=== PATIENT | female | born 1945 | race Caucasian/White ===

== ENCOUNTER → 2017-01-17 | Outpatient (CLI) | payer MEDICARE, BC ==
--- NOTE | 2017-01-17 11:13 | US ---
EXAMINATION TYPE: US carotid duplex BILAT DATE OF EXAM: 01/17/2017 10:25 AM COMPARISON: NONE CLINICAL HISTORY: I65.23 OCCLUSION AND STENOSIS OF CAROTID. r/o occlusion or stenosis, baseline EXAM MEASUREMENTS: RIGHT: Peak Systolic Velocity (PSV) cm/sec ----- Right CCA: 55.3 ----- Right ICA: 101.8 ----- Right ECA: 122.2 ICA/CCA ratio: 1.8 RIGHT: End Diastole cm/sec ----- Right CCA: 12.5 ----- Right ICA: 26.7 ----- Right ECA: 9.1 LEFT: Peak Systolic Velocity (PSV) cm/sec ----- Left CCA: 79.1 ----- Left ICA: 107.0 ----- Left ECA: 92.1 ICA/CCA ratio: 1.4 LEFT: End Diastole cm/sec ----- Left CCA: 18.0 ----- Left ICA: 35.8 ----- Left ECA: 10.6 VERTEBRALS (direction of flow): Right Vertebral: Antegrade Left Vertebral: Antegrade No significant stenosis or elevated velocities seen. Plaque seen in bilateral bulbs. Bilateral wall thickening. Some intimal thickening is noted. Couple of small plaques are present. IMPRESSION: 1. Atheromatous plaquing without significant flow-limiting stenosis. Criteria for Assigning % of Stenosis / Diameter reduction (Estimation based on the indirect measurements of the internal carotid artery velocities (ICA PSV). 1. Normal (no stenosis)=ICA PSV < 125 cm/s: ratio < 2.0: ICA EDV<40 cm/s. 2. Less than 50% stenosis=ICA PSV < 125 cm/s: ratio < 2.0: ICA EDV<40 cm/s. 3. 50 to 69% stenosis=ICA PSV of 125 to 230 cm/s: ration 2.0 ? 4.0: ICA EDV 40-100 cm/s. 4. Greater than 70% stenosis to near occlusion= ICA PSV > 230 cm/s: ratio > 4.0: ICA EDV > 100 cm/s. 5. Near occlusion= ICA PSV velocities may be low or undetectable: variable ratio and ICA EDV. 6. Total occlusion=unable to detect flow.
--- NOTE | 2017-01-17 14:23 | BD ---
EXAMINATION TYPE: MG DEXA axial skeleton. DATE OF EXAM: 01/17/2017 11:00 AM COMPARISON: NONE CLINICAL HISTORY: screening for osteoporosis Height: 5'6 Weight: 317 FRAX RISK QUESTIONS: Alcohol (3 or more units per day): no Family History (Parent hip fracture): no Glucocorticoids (More than 3mos): no (Ex: prednisone, prednisolone, methylprednisolone, dexamethasone, and hydrocortisone). History of Fracture in Adulthood: no Secondary Osteoporosis: 1. Type 1 Diabetes: no 2. Hyperthyroidism: no 3. Menopause before 45: no 4. Malnutrition: no 5. Chronic liver disease: no Rheumatoid Arthritis: no Current Tobacco Use: no RISK FACTORS HISTORY OF: Family History of Osteoporosis: Active: Postmenopausal woman: MEDICATIONS: Thyroid Medications: Which medication: Synthroid How Lon Additional Medications: list scanned in Additional History: screening EXAM MEASUREMENTS: Bone mineral densitometry was performed using the [employer] System. Bone mineral density as measured about the Lumbar spine is: ----- L1-L4(G/cm2): 1.252 T Score Values are as follows: ----- L2: 0.3 ----- L3: 0.6 ----- L4: 0.8 ----- L1-L4: 0.6 Bone mineral density about the R hip (g/cm2): 1.000 Bone mineral density about the L hip (g/cm2): 1.025 T Score values are as follows: -----R Neck: -0.3 -----L Neck: -0.1 -----R Total: 1.2 -----L Total: 1.6 IMPRESSION: Normal (Values between +1 and -1 indicate normal bone mass). Consider repeating this study in 5 year s or sooner if there is some new clinical indication. NOTE: T-SCORE=SD OF THE YOUNG ADULT MEAN.
--- NOTE | 2017-01-18 15:42 | ECHOF ---
Referral Reason:i34.0 nONHEUMATIC MITRAL REGURGUTATION MEASUREMENTS -------- HEIGHT: 165.1 cm WEIGHT: 136.1 kg BP: RVIDd: 3.3 cm (< 3.3) IVSd: 1.4 cm (0.6 - 1.1) LVIDd: 4.7 cm (3.9 - 5.3) LVPWd: 1.5 cm (0.6 - 1.1) IVSs: 1.7 cm LVIDs: 3.5 cm LVPWs: 1.5 cm LA Diam: 3.8 cm (2.7 - 3.8) LAESV Index (A-L): 29.65 ml/m Ao Diam: 3.3 cm (2.0 - 3.7) AV Cusp: 1.6 cm (1.5 - 2.6) LA Diam: 4.6 cm (2.7 - 3.8) MV EXCURSION: 21.020 mm (> 18.000) MV EF SLOPE: 67 mm/s (70 - 150) EPSS: 0.3 cm MV E Ron: 0.53 m/s MV DecT: 321 ms MV A Ron: 0.88 m/s MV E/A Ratio: 0.60 RAP: 5.00 mmHg RVSP: 15.01 mmHg FINDINGS -------- Sinus rhythm. This was a technically adequate study. There is mild concentric left ventricular hypertrophy. Overall left ventricular systolic function is low-normal with, an EF between 50 - 55 %. The diastolic filling pattern is normal for the age of the patient 10.25. The right ventricle is normal in size. LA is midly dilated 29-33ml/m2. The right atrial size is normal. There is mild aortic valve sclerosis. There is no evidence of aortic regurgitation. Mild mitral annular calcification present. Mild mitral regurgitation is present. Mild tricuspid regurgitation present. There is no evidence of pulmonary hypertension. The right ventricular systolic pressure, as measured by Doppler, is 15.01mmHg. There is no pulmonic regurgitation present. The aortic root size is normal. There is no pericardial effusion. CONCLUSIONS -------- 1. There is mild concentric left ventricular hypertrophy. 2. The right ventricular systolic pressure, as measured by Doppler, is 15.01mmHg. 3. Overall left ventricular systolic function is low-normal with, an EF between 50 - 55 %. 4. The diastolic filling pattern is normal for the age of the patient 10.25 5. LA is midly dilated 29-33ml/m2. 6. There is mild aortic valve sclerosis. 7. Mild mitral annular calcification present. 8. Mild mitral regurgitation is present. 9. Mild tricuspid regurgitation present. 10. There is no evidence of pulmonary hypertension. TRIMMER OPERATOR: Kenna Deshpande RDCS
--- NOTE | 2017-01-22 08:24 | MM ---
Reason for exam: screening (asymptomatic). Last mammogram was performed 5 years and 6 months ago. History: Patient is postmenopausal. Family history of breast cancer in maternal aunt. Took estrogen for 5 years. Took progesterone for 5 years. Physical Findings: A clinical breast exam by your physician is recommended on an annual basis and results should be correlated with mammographic findings. MG 3D Screening Mammo W/Cad Bilateral CC and MLO view(s) were taken. Prior study comparison: July 12, 2011, bilateral digital screening mammo w/CAD. December 16, 2009, bilateral digital screening mammogram. There are scattered fibroglandular densities. No significant changes when compared with prior studies. ASSESSMENT: Negative, BI-RAD 1 RECOMMENDATION: Routine screening mammogram of both breasts in 1 year.
== END | disposition home or self-care (01) ==
LOC: RADUSWWP 09:38
PROVIDERS: ATTEND Internal Medicine
DX: Z12.31 Encounter for screening mammogram for malignant neoplasm of breast (principal); I08.1 Rheumatic disorders of both mitral and tricuspid valves; I10 Essential (primary) hypertension; E11.9 Type 2 diabetes mellitus without complications; E03.9 Hypothyroidism, unspecified; I65.29 Occlusion and stenosis of unspecified carotid artery; Z13.820 Encounter for screening for osteoporosis; Z79.82 Long term (current) use of aspirin; Z79.84 Long term (current) use of oral hypoglycemic drugs; Z79.1 Long term (current) use of non-steroidal anti-inflammatories (NSAID); Z79.899 Other long term (current) drug therapy
CPT/HCPCS: 93306; 77080; 77063; 93880; G0202

== ENCOUNTER → 2017-03-21 | Outpatient (CLI) | payer MEDICARE, BC ==
[2017-03-21 11:14] LABS: Appearance,Urine Clear (Clear); Bilirubin,Urine Negative (Negative); Glucose,Urine (UA) Negative (Negative); Ketones,Urine Negative (Negative); Leukocyte Esterase,Urine Small (Negative); Mucus,Urine Rare /hpf; Nitrite,Urine Negative (Negative); PH, Urine 5.5 (5.0-8.0); Particle Count 4046; Protein,Urine Negative (Negative); RBC,Urine 1 /hpf (0-5); Specific Gravity,Urine 1.021 (1.001-1.035); Squamous Epithelial Cell,Urine 2 /hpf (0-4); UA Billing (MACRO vs. MICRO) MICRO; Urobilinogen,Urine <2.0 mg/dL (<2.0); WBC,Urine 3 /hpf (0-5)
[2017-03-21 11:16] LABS: Basophils # (A) 0.1 k/uL (0-0.2); Basophils % (A) 1 %; CH 30.3; CHCM 33.7; Eosinophils # (A) 0.2 k/uL (0-0.7); Eosinophils % (A) 4 %; HCT 45.8 % (34.0-46.0); HDW 2.68; HGB 15.4 gm/dL (11.4-16.0); Luc # (Auto) 0.12; Luc % (Auto) 2; Lymphocytes # (A) 1.8 k/uL (1.0-4.8); Lymphocytes % (A) 29 %; MCH 30.4 pg (25.0-35.0); MCHC 33.7 g/dL (31.0-37.0); MCV 90.2 fL (80.0-100.0); Monocytes # (A) 0.3 k/uL (0-1.0); Monocytes % (A) 5 %; Neutrophils # (A) 3.6 k/uL (1.3-7.7); Neutrophils % (A) 59 %; RBC 5.07 m/uL (3.80-5.40); RDW 12.9 % (11.5-15.5); WBC 6.1 k/uL (3.8-10.6); WBC (Perox) 6.13
[2017-03-21 11:25] LABS: ALT 34 U/L (9-52); AST 28 U/L (14-36); Alkaline Phosphatase 85 U/L (38-126); Anion Gap 8 mmol/L; Blood Urea Nitrogen 25 mg/dL (7-17); Calcium 9.7 mg/dL (8.4-10.2); Carbon Dioxide 31 mmol/L (22-30); Chloride 102 mmol/L (98-107); Cholesterol 175 mg/dL (<200); Creatine Kinase 39 U/L (30-135); Glucose 162 mg/dL (74-99); HDL Cholesterol 59 mg/dL (40-60); Non-African American GFR(MDRD) >60 (>60 ml/min/1.73 sqM); Potassium 4.4 mmol/L (3.5-5.1); Sodium 141 mmol/L (137-145); Total Bilirubin 0.8 mg/dL (0.2-1.3); Total Protein 6.9 g/dL (6.3-8.2); Triglycerides 159 mg/dL (<150)
== END | disposition home or self-care (01) ==
LOC: LABWHC1 10:41
PROVIDERS: ATTEND Internal Medicine
DX: E78.00 Pure hypercholesterolemia, unspecified (principal); E55.9 Vitamin D deficiency, unspecified; E11.9 Type 2 diabetes mellitus without complications; E03.8 Other specified hypothyroidism; I10 Essential (primary) hypertension
CPT/HCPCS: 36415; 80053; 80061; 81001; 82306; 82550; 83036; 84439; 84443; 84550; 85025

== ENCOUNTER → 2018-01-30 | Outpatient (CLI) | payer MEDICARE, BC ==
--- NOTE | 2018-02-03 12:48 | MM ---
Reason for exam: screening (asymptomatic). Last mammogram was performed 1 year ago. History: Patient is postmenopausal. Family history of breast cancer in maternal aunt. Took estrogen for 5 years. Took progesterone for 5 years. Physical Findings: A clinical breast exam by your physician is recommended on an annual basis and results should be correlated with mammographic findings. MG 3D Screening Mammo W/Cad Bilateral CC, MLO, and XCCL view(s) were taken. Prior study comparison: January 17, 2017, bilateral MG 3d screening mammo w/cad. July 12, 2011, bilateral digital screening mammo w/CAD. The breast tissue is heterogeneously dense. This may lower the sensitivity of mammography. No significant changes when compared with prior studies. ASSESSMENT: Benign, BI-RAD 2 RECOMMENDATION: Routine screening mammogram of both breasts in 1 year.
== END | disposition home or self-care (01) ==
LOC: RADMAMWWP 06:58
PROVIDERS: ATTEND Obstetrics & Gynecology
DX: Z12.31 Encounter for screening mammogram for malignant neoplasm of breast (principal)
CPT/HCPCS: 77063; 77067

== ENCOUNTER → 2019-09-17 | Outpatient (CLI) | payer MEDICARE, BC ==
--- NOTE | 2019-09-18 11:00 | ECHOF ---
Referral Reason:I22.[address] elevation (STEMI) myocardial i MEASUREMENTS -------- HEIGHT: 170.2 cm WEIGHT: 136.1 kg BP: RVIDd: 2.3 cm (< 3.3) IVSd: 1.3 cm (0.6 - 1.1) LVIDd: 3.9 cm (3.9 - 5.3) LVPWd: 1.4 cm (0.6 - 1.1) IVSs: 1.8 cm LVIDs: 2.7 cm LVPWs: 1.9 cm LAESV Index (A-L): 19.48 ml/m Ao Diam: 2.8 cm (2.0 - 3.7) AV Cusp: 1.8 cm (1.5 - 2.6) LA Diam: 3.8 cm (2.7 - 3.8) MV E Ron: 0.84 m/s MV DecT: 153 ms MV A Ron: 1.05 m/s MV E/A Ratio: 0.80 RAP: 5.00 mmHg RVSP: 12.66 mmHg FINDINGS -------- Sinus rhythm. This was a technically adequate study. The left ventricular size is normal. There is mild concentric left ventricular hypertrophy. Overa ll left ventricular systolic function is normal with, an EF between 55 - 60 %. The diastolic fillin g pattern is normal for the age of the patient 13.84. The right ventricle is normal in size. The left atrial size is normal. Normal LA size by volume 22+/-6 ml/m2. The right atrial size is normal. The aortic valve is trileaflet and appears structurally normal. The mitral valve is normal. The mitral valve leaflets are mildly thickened. There is trace mitral regurgitation. The tricuspid valve appears structurally normal. Trace tricuspid regurgitation present. Right selvin tricular systolic pressure is normal at < 35 mmHg. There is no pulmonic regurgitation present. The aortic root size is normal. Normal inferior vena cava with normal inspiratory collapse consistent with estimated right atrial pre ssure of 5 mmHg. There is no pericardial effusion. CONCLUSIONS -------- 1. Sinus rhythm. 2. This was a technically adequate study. 3. The left ventricular size is normal. 4. There is mild concentric left ventricular hypertrophy. 5. Overall left ventricular systolic function is normal with, an EF between 55 - 60 %. 6. The diastolic filling pattern is normal for the age of the patient 13.84 7. The right ventricle is normal in size. 8. The left atrial size is normal. 9. Normal LA size by volume 22+/-6 ml/m2. 10. The right atrial size is normal. 11. The aortic valve is trileaflet and appears structurally normal. 12. The mitral valve is normal. 13. The mitral valve leaflets are mildly thickened. 14. There is trace mitral regurgitation. 15. The tricuspid valve appears structurally normal. 16. Trace tricuspid regurgitation present. 17. Right ventricular systolic pressure is normal at < 35 mmHg. 18. There is no pulmonic regurgitation present. 19. The aortic root size is normal. 20. Normal inferior vena cava with normal inspiratory collapse consistent with estimated right atrial pressure of 5 mmHg. 21. There is no pericardial effusion. CROP AND SOIL SCIENTIST: Shannen London RDCS
== END | disposition home or self-care (01) ==
LOC: RADECHMAIN 13:11
PROVIDERS: ATTEND Internal Medicine
DX: I51.7 Cardiomegaly (principal)
CPT/HCPCS: 93306

== ENCOUNTER → 2020-01-26 | Outpatient (CLI) | payer MEDICARE, BC ==
[2020-01-26 10:55] LABS: Basophils # (A) 0.1 k/uL (0-0.2); Basophils % (A) 1 %; Eosinophils # (A) 0.3 k/uL (0-0.7); Eosinophils % (A) 4 %; HCT 44.2 % (34.0-46.0); HGB 14.6 gm/dL (11.4-16.0); Lymphocytes # (A) 2.2 k/uL (1.0-4.8); Lymphocytes % (A) 30 %; MCH 30.9 pg (25.0-35.0); MCHC 32.9 g/dL (31.0-37.0); MCV 93.9 fL (80.0-100.0); Mean Platelet Volume 7.5; Monocytes # (A) 0.4 k/uL (0-1.0); Monocytes % (A) 5 %; Neutrophils # (A) 4.3 k/uL (1.3-7.7); Neutrophils % (A) 58 %; Platelet Count 211 k/uL (150-450); RBC 4.71 m/uL (3.80-5.40); RDW 12.6 % (11.5-15.5); WBC 7.3 k/uL (3.8-10.6)
[2020-01-26 17:45] LABS: African American GFR (CKD) 73.5 (60.0-200.0); Albumin/Globulin Ratio 1.67 (1.60-3.17); Anion Gap 9.2 mmol/L (4.00-12.00); BUN/Creat Ratio 27.78 Ratio (12.00-20.00); Calcium 9.6 mg/dL (8.7-10.3); Carbon Dioxide 26.8 mmol/L (21.6-31.8); Chol/HDL Ratio 2.8; Globulin 2.4 g/dL (1.6-3.3); LDL Cholesterol,Calculated 74.2 mg/dL (0.0-131.0); Non-African American GFR(CKD) 63.4 (60.0-200.0); Potassium 4.6 mmol/L (3.5-5.5); Total Bilirubin 0.7 mg/dL (0.3-1.2); Total Protein 6.4 g/dL (6.2-8.2); VLDL Calculation 33.8 mg/dL (5.00-40.00)
[2020-01-26 18:12] LABS: Hemoglobin A1C 6.5 % (4.0-6.0)
== END | disposition home or self-care (01) ==
LOC: LABWHC1 09:47
PROVIDERS: ATTEND Internal Medicine
DX: I10 Essential (primary) hypertension (principal); E78.2 Mixed hyperlipidemia; E11.69 Type 2 diabetes mellitus with other specified complication
CPT/HCPCS: 36415; 80053; 80061; 83036; 84443; 85025

== ENCOUNTER → 2022-07-11 | Outpatient (CLI) | payer MEDICARE, BC ==
[2022-07-11 09:58] VITALS: BP 127/75; PULSE 86; RESP 18; TEMP 98.8
--- NOTE | 2022-07-11 10:53 | P.HPOB ---
History of Present Illness H&P Date: 07/11/22 Chief Complaint: The patient is here for her routine gynecologic exam. This is a 76-year-old with an LMP of approximately 2006. The patient is here to establish with this office. It has been more than 4 years since her last pelvic exam. She is without gynecologic complaints and denies any postmenopausal bleeding. Review of Systems The patient has lost 75 pounds over the last year. She states this has been intentional weight loss and she has done that by eating smaller portions and eating healthy. She denies respiratory, cardiac, or G.I. problems. Past Medical History Past Medical History: Diabetes Mellitus, Hyperlipidemia, Hypertension, Osteoarthritis (OA), Thyroid Disorder Additional Past Medical History / Comment(s): GOITER and hypothyroidism controlled with thyroid medication. Type 2 diabetes diet controlled. Glaucoma. 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 History of Any Multi-Drug Resistant Organisms: None Reported Past Surgical History: Bariatric Surgery, Cholecystectomy, Tubal Ligation Additional Past Surgical History / Comment(s): LAP BAND 2000, HEMROID SURGERY 1 972. Nasal surgery 2. Past Psychological History: No Psychological Hx Reported (She denies current depression.) Smoking Status: Never smoker Past Alcohol Use History: Rare (3 per year) Past Drug Use History: None Reported Additional History: She has been since 1966 and is not sexually active. 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 - Past Family History Mother Family Medical History: Diabetes Mellitus Father Family Medical History: Myocardial Infarction ([place]) Additional Family Medical History / Comment(s): from an [place] at age 52. Medications and Allergies Home Medications Medication Instructions Recorded Confirmed Type Aspirin 81 mg PO DAILY 06/19/14 07/11/22 History Levothyroxine Sodium [Synthroid] 125 mcg PO DAILY 06/19/14 07/11/22 History Losartan/Hydrochlorothiazide 1 tab PO DAILY 06/19/14 07/11/22 History [Losartan-Hctz 100-25 mg Tab] Pravastatin Sodium [Pravachol] 40 mg PO DAILY 06/19/14 07/11/22 History Timolol [Betimol 0.5% Ophth Soln] 1 drop BOTH EYES BID 06/19/14 07/11/22 History Cholecalciferol [Vitamin D3 (25 50 mcg PO DAILY 07/11/22 07/11/22 History Mcg = 1000 Iu)] Multivitamin [Multivitamins Adult 1 cap PO DAILY 07/11/22 07/11/22 History Gummies] amLODIPine BESYLATE 5 mg PO DAILY 07/11/22 07/11/22 History Allergies Allergy/AdvReac Type Severity Reaction Status Date / Time adhesive tape Allergy Rash/Hives Unverified 07/11/22 09:49 Exam Vital Signs Temp Pulse Resp BP Pulse Ox 07/11/22 09:54 98.8 F 86 18 127/75 97 Intake and Output 07/10/22 07/11/22 07/11/22 22:59 06:59 14:59 Other: Weight 108.409 kg Height 5 feet 7 inches, weight 239 pounds, BMI 37.4. This is a well-developed well-nourished white female who is alert and oriented times 3 in no acute distress. HEENT: Within normal limits. NECK: Supple without mass or thyromegaly. CHEST AND LUNGS: Clear to auscultation. HEART: Regular rate and rhythm. BREASTS: Are without mass or discharge. AXILLARY EXAM: Negative for adenopathy. BACK: Negative for CVA tenderness. ABDOMEN: Soft, nontender, without palpable masses. PELVIC EXAM: Normal external genitalia with mild atrophy. Cervix and vagina appear normal is mild atrophy. There is no unusual discharge. There is no evidence of prolapse. The uterus is midposition, nongravid size and nontender. There are no palpable adnexal masses or tenderness. RECTAL EXAM: rectovaginal exam is negative for mass or tenderness and is negative for occult blood. EXTREMITIES: Nontender. IMPRESSION: 1. 76-year-old menopausal female with normal gynecologic exam PLAN: 1. Pap smear cotest was performed. Data base is incomplete regarding previous cervical screening. If this Pap smear cotest is negative, we will repeated an approximate 4-5 years and if they are both negative, we will discontinue Pap s josemanuel. 2. Self breast awareness was discussed with the patient. We have also discussed symptoms associated with inflammatory breast cancer. 3. Screening mammogram is scheduled for 08/02/2022. The order slip was given to the patient for this. 4. Osteoporosis prevention was discussed. I have stressed the importance of adequate calcium, vitamin D and regular exercise. Recommended amounts of ca lcium and vitamin D were also discussed. Bone density testing is scheduled for 08/02/2022 and the order slip was given to the patient for this. She had a normal bone density test in 2017. 5. Colorectal cancer screening was discussed. She has been doing Cologuard testing through her PCP and states she will be doing this in the near future. 6. She has completed her Covid vaccination series and has received 3 boosters. 7. She was advised to return in one year for her annual well woman exam.
== END | disposition home or self-care (01) ==
LOC: WWCWWP 09:41
PROVIDERS: ATTEND Obstetrics & Gynecology
DX: Z53.9 Procedure and treatment not carried out, unspecified reason (principal)

== ENCOUNTER → 2022-08-02 | Outpatient (CLI) | payer MEDICARE, BC ==
--- NOTE | 2022-08-02 17:48 | BD ---
EXAMINATION TYPE: Axial Bone Density DATE OF EXAM: 08/02/2022 CLINICAL HISTORY: 76 year old Female. ICD-10 CODE: M85.851 DISRD OF BONE DENSITY AND STRUCTURE Height: 66 Weight: 242.7 FRAX RISK QUESTIONS: Alcohol (3 or more units per day): no Family History (Parent hip fracture): no Glucocorticoids (More than 3mos): no (Ex: prednisone, prednisolone, methylprednisolone, dexamethasone, and hydrocortisone). History of Fracture in Adulthood: no Secondary Osteoporosis: 1. Type 1 Diabetes: no 2. Hyperthyroidism: no 3. Menopause before 45: no 4. Malnutrition: no 5. Chronic liver disease: no Rheumatoid Arthritis: no Current Tobacco Use: no RISK FACTORS HISTORY OF: Surgery to Spine/Hip(right/left)/Wrist (right/left): no Family History of Osteoporosis: yes Active: no Diet low in dairy products/other sources of calcium: no Postmenopausal woman: yes Lost more than 2 inches in height since high school: no MEDICATIONS: Thyroid Medications:levothyroxine Additional History: EXAM MEASUREMENTS: Bone mineral densitometry was performed using the [employer] System. Bone mineral density as measured about the Lumbar spine is: ----- L1-L4(G/cm2): 1.480 T Score Values are as follows: ----- L1: 1.3 ----- L2: 3.9 ----- L3: 3.9 ----- L4: 1.3 ----- L1-L4: 2.5 Bone mineral density has: increased 21.3 % since study of: 01.17.2017 Bone mineral density about the R hip (g/cm2): 1.036 Bone mineral density about the L hip (g/cm2): 1.015 T Score values are as follows: -----R Neck: 0.0 -----L Neck: -0.2 -----R Total: 0.9 -----L Total: 0.9 Bone mineral density has: decreased -5.1 % since study of: 01.17.2017 FRAX%s: The graph provided illustrates a 7.1% chance for a major osteoporotic fx and a 0.7% chance fo r the hips probability for fx in 10 years time. IMPRESSION: Normal (Values between +1 and -1 indicate normal bone mass). Consider repeating this study in 5 year s or sooner if there is some new clinical indication. NOTE: T-SCORE=SD OF THE YOUNG ADULT MEAN.
--- NOTE | 2022-08-03 07:57 | MM ---
Reason for Exam: Screening (asymptomatic). Last mammogram was performed 4 year(s) and 6 month(s) ago. Patient History: Menarche at age 17. First Full-Term at age 21. Postmenopausal. Patient used Estrogen for 5 years. Patient used Progesterone for 5 years. Maternal aunt had breast cancer. Risk Values: Karolina 5 year model risk: 1.4%. NCI Lifetime model risk: 3.1%. Prior Study Comparison: 07/12/2011 Bilateral Screening Mammogram, [facility]. 01/17/2017 Bilateral Screening Mammogram, [facility]. 01/30/2018 Bilateral Screening Mammogram, [facility]. Tissue Density: The breast tissue is heterogeneously dense. This may lower the sensitivity of mammography. Findings: Analyzed By CAD. There are benign-appearing rounded, dystrophic, and vascular calcifications bilaterally redemonstrated. There is no suspicious new group of microcalcifications or new suspicious mass in either breast. Overall Assessment: Benign, BI-RAD 2 Management: Screening Mammogram of both breasts in 1 year. A clinical breast exam by your physician is recommended on an annual basis and results should be correlated with mammographic findings. Electronically signed and approved by: Patrice Dangelo M.D.
== END | disposition home or self-care (01) ==
LOC: RADMAMWWP 07:51
PROVIDERS: ATTEND Internal Medicine
DX: Z12.31 Encounter for screening mammogram for malignant neoplasm of breast (principal); M85.851 Other specified disorders of bone density and structure, right thigh; Z78.0 Asymptomatic menopausal state; Z80.3 Family history of malignant neoplasm of breast
CPT/HCPCS: 77063; 77067; 77080

== ENCOUNTER → 2023-01-14 | Outpatient (CLI) | payer MEDICARE, BC ==
--- NOTE | 2023-01-14 08:19 | CT ---
EXAMINATION TYPE: CT chest wo con DATE OF EXAM: 01/14/2023 COMPARISON: None HISTORY: Pulmonary nodule. Patient not having any complaints at time of scan. CT DLP: 494.[address] of the chest was performed with lung and mediastinal window settings submitted. The la ck of contrast limits evaluation of the vascular, mediastinal and parenchymal structures including th e upper abdomen. LUNGS: 3 mm right upper lobe pulmonary nodule image 14 sequence 4. No additional pulmonary nodules se en. No evidence for infiltrate. No volume loss or pleural effusion. MEDIASTINUM/ARLINE: Thoracic aorta is of normal caliber with limited evaluation given lack of contrast . The heart is not enlarged. No evidence for mediastinal mass. No lymph nodes greater than 1cm. UPPER ABDOMEN: No significant abnormality is seen. OTHER: The gallbladder is surgically absent. Gastric banding procedure noted. IMPRESSION: 1. 3 mm right upper lobe pulmonary nodule. Stability over a two-year time frame should be documented radiographically.
== END | disposition home or self-care (01) ==
LOC: RADCTMAIN 06:40
PROVIDERS: ATTEND Internal Medicine
DX: R91.1 Solitary pulmonary nodule (principal)
CPT/HCPCS: 71250

== ENCOUNTER → 2023-08-09 | Outpatient (CLI) | payer MEDICARE, BC ==
--- NOTE | 2023-08-13 21:20 | MM ---
Reason for Exam: Screening (asymptomatic). Last screening mammogram was performed 12 month(s) ago. Patient History: Menarche at age 17. First Full-Term at age 21. Postmenopausal. Patient used Estrogen for 5 years. Patient used Progesterone for 5 years. Maternal aunt had breast cancer. Risk Values: Karolina 5 year model risk: 1.4%. NCI Lifetime model risk: 2.9%. Prior Study Comparison: 01/17/2017 Bilateral Screening Mammogram, [facility]. 01/30/2018 Bilateral Screening Mammogram, [facility]. 08/02/2022 Bilateral MG 3D screening mammo w/cad, [facility]. Tissue Density: There are scattered fibroglandular densities. Findings: Analyzed By CAD. Unchanged bilateral areas of asymmetric densities. Unchanged grouped calcifications central outer aspect of the left breast. Scar marker also present on the left from prior mole removal per technologist history. There is no suspicious group of microcalcifications or new suspicious mass in either breast. Overall Assessment: Benign, BI-RAD 2 Management: Screening Mammogram of both breasts in 1 year. . Patient should continue monthly self-breast exams. A clinical breast exam by your physician is recommended on an annual basis. This exam should not preclude additional follow-up of suspicious palpable abnormalities. Note on Karolina scores and lifetime risk: 1. A Karloina score greater than 3% is considered moderate risk. If this is the case, consider specialist referral to assess eligibility for a risk reducing agent. 2. If overall lifetime risk for the development of breast cancer is 20% or higher, the patient may qualify for future screening with alternating mammogram and breast MRI. Electronically signed and approved by: Elvin Hughes M.D. Radiologist
== END | disposition home or self-care (01) ==
LOC: RADMAMWWP 16:07
PROVIDERS: ATTEND Internal Medicine
DX: Z12.31 Encounter for screening mammogram for malignant neoplasm of breast (principal); Z80.3 Family history of malignant neoplasm of breast; Z78.0 Asymptomatic menopausal state
CPT/HCPCS: 77063; 77067

== ENCOUNTER → 2024-08-11 | Outpatient (CLI) | payer BC, MEDICARE ==
--- NOTE | 2024-08-11 11:01 | US ---
EXAMINATION TYPE: US carotid duplex BILAT DATE OF EXAM: 08/11/2024 COMPARISON: US CLINICAL INDICATION: Female, 78 years old with history of I65.23 Stenosis; Stenosis Additional History: .... TECHNIQUE: Grayscale, color Doppler and spectral Doppler evaluation of the bilateral carotid systems and vertebral arteries. Indirect Doppler criteria was utilized. FINDINGS: EXAM MEASUREMENTS: RIGHT: Peak Systolic Velocity (PSV) cm/sec ----- Right CCA: 95.2 ----- Right ICA: 103.0 ----- Right ECA: 172.7 ICA/CCA ratio: 1.1 RIGHT: End Diastole cm/sec ----- Right CCA: 14.9 ----- Right ICA: 22.8 ----- Right ECA: 11.0 LEFT: Peak Systolic Velocity (PSV) cm/sec ----- Left CCA: 90.8 ----- Left ICA: 135.0 ----- Left ECA: 128.6 ICA/CCA ratio: 1.5 LEFT: End Diastole cm/sec ----- Left CCA: 14.9 ----- Left ICA: 25.2 ----- Left ECA: 0.0 VERTEBRALS (direction of flow): Right Vertebral: Antegrade Left Vertebral: Antegrade Rhythm: Normal SLATE MIXER NOTES: Focal areas of atherosclerotic plaque bilaterally. Elevated velocities right ECA , otherwise no significant stenosis visualized Color Doppler imaging shows patency with blood flow throughout the carotid artery. Spectral waveforms are within normal limits. IMPRESSION: Right: No hemodynamically significant stenosis. Left: No hemodynamically significant stenosis. Criteria for Assigning % of Stenosis / Diameter reduction (Estimation based on the indirect measurements of the internal carotid artery velocities (ICA PSV). 1. Normal (no stenosis)=ICA PSV < 125 cm/s: ratio < 2.0: ICA EDV<40 cm/s. 2. Less than 50% stenosis=ICA PSV < 125 cm/s: ratio < 2.0: ICA EDV<40 cm/s. 3. 50 to 69% stenosis=ICA PSV of 125 to 230 cm/s: ration 2.0 ? 4.0: ICA EDV 40-100 cm/s. 4. Greater than 70% stenosis to near occlusion= ICA PSV > 230 cm/s: ratio > 4.0: ICA EDV > 100 cm/s. 5. Near occlusion= ICA PSV velocities may be low or undetectable: variable ratio and ICA EDV. 6. Total occlusion=unable to detect flow. [facility], , 08/11/2024 10:59 AM
--- NOTE | 2024-08-11 11:58 | CT ---
EXAMINATION TYPE: CT chest wo con CT DLP: 781 mGycm, Automated exposure control for dose reduction was used. DATE OF EXAM: 08/11/2024 11:46 AM COMPARISON: CT chest 01/14/2023 CLINICAL INDICATION:Female, 78 years old with history of R91.1; PHH, F/u for right upper lobe pulmona ry nodule. TECHNIQUE: Multiple axial images were obtained through the chest without IV contrast. Lack of IV or o ral contrast limits evaluation of solid and hollow organ viscera. . Coronal and sagittal reformats re viewed. FINDINGS: LUNGS/ PLEURA: No pleural effusion, pneumothorax, focal consolidation. Minimal centrilobular emphysem atous changes. Posterior upper lobe stable 4 mm pulmonary nodule (series 4, image 11). Stable medial left lower lobe 5 mm pulmonary nodule (series 4, image 41). Couple of scattered punctate calcified g ranulomas. No new or enlarging pulmonary nodules. AIRWAY: Patent and unremarkable.. HEART: Size within normal limits.No pericardial effusion. Mild coronary arterial calcifications. MEDIASTINUM: No gross evidence of adenopathy. VASCULATURE: No aortic aneurysm. Atherosclerotic calcification of the aorta and its branches. MUSCULOSKELETAL: Mild disc degeneration changes are present throughout the thoracolumbar spine. No ac rosie osseous abnormality. SOFT TISSUES/LYMPH NODES: Unremarkable. LOWER NECK: No significant findings. 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 Gallbladder is surgically absent. 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 IMPRESSION: Couple of stable pulmonary nodules dating back to 2022 exam. No new or enlarging pulmonary nodules. [facility], , 08/11/2024 11:56 AM
--- NOTE | 2024-08-12 12:06 | MM ---
Reason for Exam: Screening (asymptomatic). Last screening mammogram was performed 12 month(s) ago. Patient History: Menarche at age 17. First Full-Term at age 21. Postmenopausal. Patient used Estrogen for 5 years. Patient used Progesterone for 5 years. Maternal aunt had breast cancer. Risk Values: Karolina 5 year model risk: 1.4%. NCI Lifetime model risk: 2.7%. Prior Study Comparison: 01/17/2017 Bilateral Screening Mammogram, [facility]. 01/30/2018 Bilateral Screening Mammogram, [facility]. 08/02/2022 Bilateral MG 3D screening mammo w/cad, [facility]. 08/09/2023 Bilateral MG 3D screening mammo w/cad, [facility]. Tissue Density: There are scattered areas of fibroglandular density. Findings: Analyzed By CAD. Right breast: There is no suspicious group of microcalcifications or new suspicious mass. Benign-appearing calcifications right breast. Left breast: There is no suspicious group of microcalcifications or new suspicious mass. Benign-appearing calcifications left breast. Overall Assessment: Benign, BI-RAD 2 Management: Screening Mammogram of both breasts in [address] [facility] will attempt to contact patient to return for supplemental views and ultrasound if indicated. Patient should continue monthly self-breast exams. A clinical breast exam by your physician is recommended on an annual basis. This exam should not preclude additional follow-up of suspicious palpable abnormalities. Note on Karolina scores and lifetime risk: 1. A Karolina score greater than 3% is considered moderate risk. If this is the case, consider specialist referral to assess eligibility for a risk reducing agent. 2. If overall lifetime risk for the development of breast cancer is 20% or higher, the patient may qualify for future screening with alternating mammogram and breast MRI. [facility], , 08/12/2024 12:04 PM. Electronically signed and approved by: Willis De La Paz DO
== END | disposition home or self-care (01) ==
LOC: RADUSWWP 09:58
PROVIDERS: ATTEND Internal Medicine
DX: Z12.31 Encounter for screening mammogram for malignant neoplasm of breast (principal); R91.1 Solitary pulmonary nodule; I65.23 Occlusion and stenosis of bilateral carotid arteries; Z78.0 Asymptomatic menopausal state; Z80.3 Family history of malignant neoplasm of breast; R92.323 Mammographic fibroglandular density, bilateral breasts
CPT/HCPCS: 71250; 77063; 77067; 93880

== ENCOUNTER → 2024-08-27 | Outpatient (CLI) | payer MEDICARE, BC ==
--- NOTE | 2024-08-28 07:41 | CA ---
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 67 - 155 / 56 - 104 cm??? LV Systolic Volume MOD BP 15.0 cm??? 22 - 58 / 19 - 49 cm??? LV Ejection Fraction MOD BP 68.2 % >= 55 % LV Cardiac Index MOD BP 710.3 cm???/min???m??? LV Diastolic Volume MOD 4C 51.6 cm??? LV Systolic Volume MOD 4C 12.5 cm??? LV Ejection Fraction MOD 4C 75.8 % LV Cardiac Index MOD 4C 861.1 cm???/min???m??? LV Diastolic Length 4C 6.6 cm LV Systolic Length 4C 5.3 cm LV Diastolic Volume MOD 2C 41.5 cm??? LV Systolic Volume MOD 2C 17.8 cm??? LV Ejection Fraction MOD 2C 57.0 % LV Cardiac Index MOD 2C 521.7 cm???/min???m??? LV Diastolic Length 2C 6.3 cm LV Systolic Length 2C 5.2 cm LA Volume 69.0 cm??? 18 - 58 / 22 - 52 cm??? LA Volume Index 29.8 cm???/m??? 16 - 28 cm???/m??? M-MODE Aortic Root Diameter MM 2.9 cm LA Systolic Diameter MM 4.4 cm LA Ao Ratio MM 1.5 AV Cusp Separation MM 1.9 cm DOPPLER MV Area PHT 2.6 cm??? Mitral E Point Velocity 73.9 cm/s Mitral A Point Velocity 107.0 cm/s Mitral E to A Ratio 0.7 MV Deceleration Time 291.0 ms FINDINGS Left Ventricle Left ventricular ejection fraction is estimated at 55-60 %. Mildly increased septal wall thickness. Moderately increased posterior wall thickness. Normal left ventricular systolic function with no obvious regional wall motion abnormalities. Right Ventricle Mild right ventricular dilatation. Right ventricular systolic pressure within normal limits. Right Atrium Mild right atrial dilatation. Left Atrium Mildly increased left atrial diameter. Mildly increased left atrial volume. Mildly increased left atrial area. Mitral Valve Structurally normal mitral valve. Trace to mild mitral regurgitation. No mitral stenosis. Aortic Valve Trileaflet aortic valve. Thickened aortic valve without stenosis. No aortic regurgitation. Tricuspid Valve Structurally normal tricuspid valve. Trace tricuspid regurgitation. No tricuspid stenosis. Pulmonic Valve Structurally normal pulmonic valve. Trace pulmonic regurgitation. No pulmonic stenosis. Pericardium Trace pericardial or pleural effusion. Aorta Normal size aortic root and proximal ascending aorta. CONCLUSIONS Normal biventricular systolic function Mildly enlarged right ventricle No significant valvular abnormalities noted No pericardial effusion Normal pulmonary artery systolic pressure Trace pericardial effusion Previewed by: Dr. Dov Groves MD (Electronically Signed) Final Date: 28 August 2024 07:40
== END | disposition home or self-care (01) ==
LOC: RADECHMAIN 14:18
PROVIDERS: ATTEND Internal Medicine
DX: I25.10 Atherosclerotic heart disease of native coronary artery without angina pectoris (principal); I31.39 Other pericardial effusion (noninflammatory); I51.7 Cardiomegaly
CPT/HCPCS: 93306